=== PATIENT | female | born 1995 | race Caucasian/White ===

== ENCOUNTER 2018-09-19 20:21 | Emergency (ER) | payer OTHER ==
[~2018-09-19] VITALS: Ht 170.2 cm; Wt 59.5 kg
[2018-09-19 21:18] LABS: BASOPHILS # (AUTO) 0.01 x10^3/uL (0-0.1); BASOPHILS % (AUTO) 0 % (0-1); EOSINOPHILS # (AUTO) 0.02 x10^3/uL (0-0.4); EOSINOPHILS % (AUTO) 0 % (1-7); LYMPHOCYTES # (AUTO) 1.07 x10^3/uL (1-3.4); LYMPHOCYTES % (AUTO) 19 % (22-44); MD NO; MEAN CORPUSCULAR HEMOGLOBIN 31.6 pg (27.0-34.8); MEAN CORPUSCULAR HGB CONC 34.5 g/dL (32.4-35.8); MEAN CORPUSCULAR VOLUME 91.5 fL (80-100); MEAN PLATELET VOLUME 7.7 fL (7.4-10.4); MONOCYTES # (AUTO) 0.35 x10^3/uL (0.2-0.8); MONOCYTES % (AUTO) 6 % (2-9); NEUTROPHILS % (AUTO) 74 % (42-75); PLATELET COUNT 316 x10^3/uL (130-400); RED BLOOD COUNT 4.78 x10^6/uL (3.82-5.3)
[2018-09-19 21:29] LABS: ANION GAP 14 mmol/L (5-15); CALCIUM 8.9 mg/dL (8.5-10.1); CHLORIDE 104 mmol/L (98-107); CREATININE 0.85 mg/dL (0.55-1.02)
[2018-09-19 21:30] LABS: ALANINE AMINOTRANSFERASE 18 U/L (12-78); ALBUMIN 3.8 g/dL (3.4-5.0)
[2018-09-19 21:32] LABS: ALKALINE PHOSPHATASE 45 U/L (45-117); BILIRUBIN,TOTAL 0.3 mg/dL (0.2-1.0)
[2018-09-19 22:09] LABS: MICROSCOPIC INDICATED
[2018-09-19 22:14] LABS: CULTURE INDICATED? YES
[2018-09-19] MEDS ORDERED: PROMETHAZINE 25 MG/ML, 1ML ONE (22:18)
[2018-09-19] MEDS ORDERED: ONDANSETRON ODT 8 MG ONE ×2 (22:18→22:19)
[2018-09-19] MEDS ORDERED: DICYCLOMINE 10 MG/ML, 2ML ONE (22:18)
[2018-09-19 22:29] LABS: HCG UR SG 1.038 (1.003-1.030)
[2018-09-19] MEDS ORDERED: ONDANSETRON ODT 8 MG PO ONE (22:30)
[2018-09-19] MEDS ORDERED: PROMETHAZINE 25 MG/ML, 1ML IM ONE (22:30)
[2018-09-19] MEDS ORDERED: DICYCLOMINE 10 MG/ML, 2ML IM ONE (22:30)
[2018-09-19 23:22] VITALS: BP 120/80
== END 2018-09-20 00:13 | disposition home or self-care (01) ==
LOC: ED 21:49
DX: K52.9 Noninfective gastroenteritis and colitis, unspecified (principal); E86.0 Dehydration
CPT/HCPCS: 36415; 80053; 81001; 81025; 83690; 85025; 87086; 96372; 99283; J0500; J2550; Q0162